=== PATIENT | female | born 1945 | race Caucasian/White ===

== ENCOUNTER 2019-03-06 10:43 | Emergency (ER) | payer MEDICARE, BC ==
[2019-03-06 11:12] VITALS: RESP 18; TEMP 98.2
[2019-03-06 11:47] VITALS: BP 141/80; PULSE 93; O2SAT 91
== END 2019-03-06 12:41 | disposition home or self-care (01) | DRG 563 ==
LOC: ED 10:43
DX: S82.892A Other fracture of left lower leg, initial encounter for closed fracture (principal); S33.5XXA Sprain of ligaments of lumbar spine, initial encounter
CPT/HCPCS: 73610; 99283; 99284; L4350